=== PATIENT | male | born 1960 ===

== ENCOUNTER 2022-02-21 18:11 | Emergency (ER) | payer OTHER ==
[~2022-02-21] VITALS: Ht 180.3 cm; Wt 79.4 kg
== END 2022-02-21 20:46 | disposition left against medical advice (07) ==
LOC: ER 18:11
DX: U07.1 COVID-19 (principal); Z53.21 Procedure and treatment not carried out due to patient leaving prior to being seen by health care provider
CPT/HCPCS: 71045